=== PATIENT | female | born 1970 | race Two or more races ===

== ENCOUNTER 2016-11-05 15:25 | Emergency (ER) | payer SELFPAY ==
[2016-11-05 15:33] VITALS: O2SAT 100
--- NOTE | 2016-11-05 15:40 | CPEKG ---
Heart Rate: 76 RR Interval: 789 P-R Interval: 136 QRSD Interval: 86 QT Interval: 388 QTC Interval: 437 P [place]: -8 QRS [place]: 3 T Wave [place]: 50 EKG Severity - NORMAL ECG - EKG Impression: SINUS RHYTHM Electronically Signed By: Forrest Pascual 05-Nov-2016 16:29:42
--- NOTE | 2016-11-05 16:07 | EDPHY ---
H & P Stated Complaint: 1 month chest pressure/sob/saw pcp started on sertraline Time Seen by Provider: 11/05/16 15:39 HPI/ROS: CHIEF COMPLAINT: Intermittent chest pain x1 month HISTORY OF PRESENT ILLNESS: The patient presents to the ED with a 1 month history of intermittent chest pain worsening over the past day. The patient denies any fever, cough or congestion. She does report the pain is pleuritic. The patient denies asymmetric calf pain or swelling. She has no prior history of PE or DVT. Pain also has a reproducible component in the left anterior chest wall. The patient was seen by her primary care provider who diagnosed her with atypical chest pain and started the patient on sertraline. The patient has not taking any NSAIDs. The patient reports her symptoms have worsened over the past 2 days. The patient denies additional acute complaints. REVIEW OF SYSTEMS: A comprehensive 10 point review of systems is otherwise negative aside from elements mentioned in the history of present illness. Source: Patient Exam Limitations: No limitations - Personal History LMP (Females 10-55): 22-28 Days Ago Current Tetanus/Diphtheria Vaccine: No - Medical/Surgical History Hx Asthma: No Hx Chronic Respiratory Disease: No Hx Diabetes: No Hx Cardiac Disease: No Hx Renal Disease: No Hx Cirrhosis: No Hx Alcoholism: No Hx HIV/AIDS: No Hx Splenectomy or Spleen Trauma: No Other PMH: denies - Social History Smoking Status: Never smoked - Physical Exam Exam: General Appearance: Alert, no distress Eyes: Pupils equal and round no pallor or injection ENT, Mouth: Mucous membranes moist Respiratory: Tenderness to palpation left anterior chest wall Cardiovascular: Regular rate and rhythm Gastrointestinal: Abdomen is soft and nontender, no masses, bowel sounds normal Neurological: A&O, normal motor function, normal sensory exam, normal cranial nerves Skin: Warm and dry, no rashes Musculoskeletal: Neck is supple nontender Extremities: symmetrical, full range of motion Constitutional: Initial Vital Signs Temperature (C) 36.6 C 11/05/16 15:30 Heart Rate 83 11/05/16 15:30 Respiratory Rate 22 H 11/05/16 15:30 Blood Pressure 131/64 H 11/05/16 15:30 O2 Sat (%) 100 11/05/16 15:30 O2 Delivery Mode Room Air Allergies/Adverse Reactions: morphine Allergy (Verified 11/05/16 15:26) Home Medications: Medication Instructions Recorded KLONOPIN 11/05/16 Sertraline HCl 11/05/16 Medical Decision Making - Diagnostics EKG Interpretation: EKG: Complete interpretation has been separately recorded in the [facility] archive. Summary impression: Sinus rhythm, no acute ischemic changes Imaging: Chest x-ray AP: Images reviewed by myself, negative for acute disease. ED Course/Re-evaluation: The patient presents to the emergency department with complaints of atypical chest pain for the past month. The patient's D-dimer is negative which I feel adequately excludes pulmonary embolism. The patient's EKG demonstrates no evidence of an arrhythmia and her troponin is normal. The patient's chest x-ray demonstrates no evidence of a pneumothorax. She has a strongly reproducible component of her chest pain and I do believe it is most likely musculoskeletal nature. The patient had an IV established. She received 30 mg of IV Toradol. Patient was re-evaluated by myself at 5:00 p.m.. I explained to her the workup in the ED. I do feel it would be reasonable for her to continue the medications prescribed by her primary care provider and also take ibuprofen as needed for pain. She should return to the ED for markedly worsening symptoms or other concerns. Differential Diagnosis: Differential diagnosis considered includes musculoskeletal pain, pneumothorax, pulmonary embolism, acute coronary syndrome, myocardial infarction - Data Points Laboratory Results: Laboratory Results 11/05/16 15:29 11/05/16 15:29 11/05/16 11/05/16 11/05/16 15:29 15:29 15:29 WBC 8.06 10^3/uL 10^3/uL (3.80-9.50) RBC 4.96 10^6/uL 10^6/uL (4.18-5.33) Hgb 11.8 g/dL L g/dL (12.6-16.3) Hct 37.8 % L % (38.0-47.0) MCV 76.2 fL L fL (81.5-99.8) MCH 23.8 pg L pg (27.9-34.1) MCHC 31.2 g/dL L g/dL (32.4-36.7) RDW 20.1 % H % (11.5-15.2) Plt Count 335 10^3/uL 10^3/uL (150-400) MPV 10.8 fL fL (8.7-11.7) Neut % (Auto) 55.5 % % (39.3-74.2) Lymph % (Auto) 36.0 % % (15.0-45.0) [place] % (Auto) 7.1 % % (4.5-13.0) Eos % (Auto) 0.7 % % (0.6-7.6) Baso % (Auto) 0.5 % % (0.3-1.7) Nucleat RBC Rel Count 0.0 % % (0.0-0.2) Absolute Neuts (auto) 4.47 10^3/uL 10^3/uL (1.70-6.50) Absolute Lymphs (auto) 2.90 10^3/uL 10^3/uL (1.00-3.00) Absolute Monos (auto) 0.57 10^3/uL 10^3/uL (0.30-0.80) Absolute Eos (auto) 0.06 10^3/uL 10^3/uL (0.03-0.40) Absolute Basos (auto) 0.04 10^3/uL 10^3/uL (0.02-0.10) Absolute Nucleated RBC 0.00 10^3/uL 10^3/uL (0-0.01) Immature Gran % 0.2 % % (0.0-1.1) Immature Gran # 0.02 10^3/uL 10^3/uL (0.00-0.10) Platelet Estimate ADEQUATE (ADEQ) Hypochromasia 2+ H Microcytic Cells 2+ H Target Cells 1+ H D-Dimer < 0.27 ug/mLFEU ug/mLFEU (0.00-0.50) Sodium 140 mEq/L mEq/L (134-144) Potassium 3.7 mEq/L mEq/L (3.5-5.2) Chloride 105 mEq/L mEq/L (97-110) Carbon Dioxide 22 mEq/l mEq/l (22-31) Anion Gap 13 mEq/L mEq/L (8-16) BUN 6 mg/dL L mg/dL (7-23) Creatinine 0.6 mg/dL mg/dL (0.6-1.0) Estimated GFR > 60 Glucose 122 mg/dL H mg/dL (70-100) Calcium 10.0 mg/dL mg/dL (8.5-10.4) Troponin I < 0.012 ng/mL ng/mL (0-0.034) Medications Given: Discontinued Medications Ketorolac Tromethamine (Toradol) 30 mg IVP EDNOW ONE Stop: 11/05/16 16:46 Last Admin: 11/05/16 16:50 Dose: 30 mg Departure - Departure Disposition: Home, Routine, Self-Care Clinical Impression: Chest pain Condition: Good Instructions: Chest Pain (ED) Additional Instructions: 1. Take Ibuprofen or Motrin 600 mg by mouth three times a day. 2. Please follow up with your regular physician as prescribed. 3. Please take medications as prescribed by your primary care provider. Referrals: [facility],. [Clinic] - As per Instructions Print Language: Azeri
[2016-11-05 16:24] LABS: ANION GAP 13 mEq/L (8-16); CARBON DIOXIDE 22 mEq/l (22-31); CHLORIDE 105 mEq/L (97-110); CREATININE 0.6 mg/dL (0.6-1.0); GLOMERULAR FILTRATION RATE > 60; GLUCOSE 122 mg/dL (70-100); POTASSIUM 3.7 mEq/L (3.5-5.2); SODIUM 140 mEq/L (134-144)
[2016-11-05 16:25] LABS: % IMMATURE GRANULYOCYTES 0.2 % (0.0-1.1); ABSOLUTE IMMATURE GRANULOCYTES 0.02 10^3/uL (0.00-0.10); ADD DIFF? NO; ADD MORPH? YES; ADD SCAN? NO; ATYPICAL LYMPHOCYTE FLAG 0 (0-99); FRAGMENT RBC FLAG 20 (0-99); HEMATOCRIT 37.8 % (38.0-47.0); HEMOGLOBIN 11.8 g/dL (12.6-16.3); LEFT SHIFT FLG 0 (0-99); LIPEMIA HEMOLYSIS FLAG 80 (0-99); MEAN CELL HEMOGLOBIN 23.8 pg (27.9-34.1); MEAN CELL HEMOGLOBIN CONCENTR. 31.2 g/dL (32.4-36.7); MEAN CELL VOLUME 76.2 fL (81.5-99.8); MEAN PLATELET VOLUME 10.8 fL (8.7-11.7); PLATELET CLUMPS FLAG 0 (0-99); PLATELET COUNT 335 10^3/uL (150-400); RED BLOOD CELL COUNT 4.96 10^6/uL (4.18-5.33)
[2016-11-05 16:28] LABS: RED CELL DISTRIBUTION WIDTH 20.1 % (11.5-15.2)
[2016-11-05 16:35] LABS: TROPONIN I < 0.012 ng/mL (0-0.034)
[2016-11-05] MEDS ORDERED: KETOROLAC 30 MG/1 ML SDV IVP ONE (16:45)
[2016-11-05 17:02] LABS: MICROCYTES 2+; TARGET CELLS 1+
[2016-11-05 17:03] LABS: HYPOCHROMIA 2+; PLATELET ESTIMATE ADEQUATE (ADEQ)
[2016-11-05 17:20] VITALS: BP 121/72; PULSE 62; RESP 16; TEMP 98.2
== END 2016-11-05 17:34 | disposition home or self-care (01) ==
DX: R07.89 Other chest pain (principal)
CPT/HCPCS: 96374; J1885